=== PATIENT | female | born 1995 | race Caucasian/White ===

== ENCOUNTER 2016-08-19 00:51 | Emergency (ER) | payer MEDICAID ==
[~2016-08-19] VITALS: Ht 177.8 cm; Wt 124.7 kg
[~2016-08-19 00:51] MED LIST: BACI28.43 TP; CITA10TA8 PO; HYDR50CA PO; MIRT30TA PO; NYST15CR2 TP; OXCA300T3 PO; PNV#1COM7 PO; QUET400T4 PO
[2016-08-19 01:00] VITALS: BP 157/71
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
[2016-08-19] MEDS ORDERED: DIAZ5TAB PO (01:35)
[2016-08-19] MEDS ORDERED: NAPR500T PO (01:35)
[2016-08-19] MEDS: KETOROLAC 60 MG/2 ML VIAL. IM ONE (01:42)
[2016-08-19] MEDS ORDERED: HYDROmorphone PF 1 MG/ML DISP.SYRIN IV ONE (01:45)
[2016-08-19] MEDS ORDERED: HYDROmorphone PF 1 MG/ML DISP.SYRIN IM ONE (02:45)
[2016-08-19] MEDS ORDERED: HYDR-79 PO (23:37)
== END 2016-08-19 02:00 | disposition home or self-care (01) ==
LOC: ER 00:51
DX: M54.5 Low back pain (principal); G89.29 Other chronic pain; F17.200 Nicotine dependence, unspecified, uncomplicated; F20.9 Schizophrenia, unspecified; Z88.2 Allergy status to sulfonamides; Z88.6 Allergy status to analgesic agent; Z91.041 Radiographic dye allergy status; Y08.89XA Assault by other specified means, initial encounter; Y93.89 Activity, other specified; Y99.8 Other external cause status; Y92.89 Other specified places as the place of occurrence of the external cause
CPT/HCPCS: 96372; 99284; J1170; J1885

== ENCOUNTER 2016-08-19 23:03 | Emergency (ER) | payer MEDICAID ==
[~2016-08-19] VITALS: Ht 177.8 cm; Wt 124.7 kg
[~2016-08-19 23:03] MED LIST changes: +DIAZ5TAB PO; +NAPR500T PO
[2016-08-19] MEDS ORDERED: HYDROmorphone PF 1 MG/ML DISP.SYRIN IM ONE (23:30)
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
[2016-08-19] MEDS ORDERED: HYDR-79 PO (23:37)
[2016-08-20 02:18] VITALS: BP 124/60
== END 2016-08-19 23:45 | disposition home or self-care (01) ==
LOC: ER 23:05
DX: S86.811A Strain of other muscle(s) and tendon(s) at lower leg level, right leg, initial encounter (principal); G89.29 Other chronic pain; F17.200 Nicotine dependence, unspecified, uncomplicated; Z88.2 Allergy status to sulfonamides; Z88.6 Allergy status to analgesic agent; Z91.041 Radiographic dye allergy status; Y08.89XA Assault by other specified means, initial encounter; Y93.89 Activity, other specified; Y99.8 Other external cause status; Y92.89 Other specified places as the place of occurrence of the external cause
CPT/HCPCS: 96372; 99283; J1170

== ENCOUNTER 2016-08-30 23:23 | Emergency (ER) | payer MEDICAID, OTHER ==
[~2016-08-30] VITALS: Ht 177.8 cm; Wt 124.7 kg
[2016-08-30 23:23] VITALS: BP 124/60
[~2016-08-30 23:23] MED LIST changes: +HYDR-79 PO
[2016-08-31] MEDS ORDERED: ACETAMINOPHEN 325 MG TABLET PO ONE (00:15)
[2016-08-31 00:16] LABS: BILIRUBIN,URINE NEG (NEG); CLARITY,URINE HAZY; COLOR,URINE YELLOW
[2016-08-31 00:17] LABS: NITRITE,URINE NEG (NEG); UROBILINOGEN,URINE 1 mg/dL (0.2 mg/dL)
[2016-08-31 00:18] LABS: GLUCOSE,URINE NEG (NEG)
[2016-08-31 00:20] LABS: BACTERIA,URINE MOD /HPF (0-FEW); SQUAMOUS EPITHELIAL CELL,UR MOD /LPF
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
[2016-08-31] MEDS ORDERED: MORPHINE SULFATE 10 MG/ML SYRINGE. IM ONE (01:00)
[2016-08-31] MEDS ORDERED: PROMETHAZINE IM 25 MG/ML VIAL IM ONE (01:00)
[2016-08-31] MEDS ORDERED: ONDANSETRON ODT 4 MG TAB.RAPDIS PO ONE (01:00)
== END 2016-08-31 01:10 | disposition home or self-care (01) ==
LOC: ER 23:23
DX: G40.909 Epilepsy, unspecified, not intractable, without status epilepticus (principal); G43.909 Migraine, unspecified, not intractable, without status migrainosus; Z88.2 Allergy status to sulfonamides; Z88.6 Allergy status to analgesic agent; Z91.040 Latex allergy status
CPT/HCPCS: 81001; 81025; 84703; 87086; 99283

== ENCOUNTER 2016-09-02 00:36 | Emergency (ER) | payer OTHER ==
[~2016-09-02] VITALS: Ht 177.8 cm; Wt 124.7 kg
[2016-09-02] MEDS ORDERED: KETOROLAC 30 MG/ML VIAL. IV ONE (01:15)
[2016-09-02] MEDS ORDERED: IV NORMAL SALINE 1,000ML 1,000 ML IV ONE (01:15)
[2016-09-02] MEDS ORDERED: ONDANSETRON PF 4 MG/2 ML VIAL. IV ONE (01:15)
[2016-09-02 01:37] LABS: BASO # 0.1 x10^3/uL (0.0-0.2); BASO % 0 % (0-3); EOS # 0.7 x10^3/uL (0.0-0.7); EOS % 5 % (0-3); HEMOGLOBIN 13.6 g/dL (12.0-15.5); LYMPH # 2.8 x10^3/uL (1.0-4.8); LYMPH % 22 % (24-48); MEAN CORPUSCULAR HEMOGLOBIN 30 pg (25-35); MEAN CORPUSCULAR HGB CONC 34 g/dL (31-37); MEAN CORPUSCULAR VOLUME 88 fL (79-100); MONO # 0.6 x10^3/uL (0.0-1.1); MONO % 4 % (0-9); NEUT % 68 % (31-73); PLATELET COUNT 198 x10^3/uL (140-400); RED BLOOD COUNT 4.57 x10^6/uL (3.50-5.40); RED CELL DISTRIBUTION WIDTH 13.6 % (11.5-14.5); WHITE BLOOD COUNT 13.2 x10^3/uL (4.0-11.0)
[2016-09-02 01:44] LABS: ALBUMIN 3.5 g/dL (3.4-5.0); ALBUMIN/GLOBULIN RATIO 0.8 (1.0-1.7); CALCIUM 9.4 mg/dL (8.5-10.1); CREATININE 0.8 mg/dL (0.6-1.0); GFR 91.4; POTASSIUM 3.7 mmol/L (3.5-5.1); TOTAL BILIRUBIN 0.2 mg/dL (0.2-1.0)
[2016-09-02 02:04] VITALS: BP 117/72
--- NOTE | 2016-09-02 02:32 | RAD ---
PROCEDURE Limited abdomen ultrasound HISTORY Right upper quadrant abdominal pain TECHNIQUE Grayscale and color Doppler sonography utilized COMPARISON No prior FINDINGS Proximal IVC unremarkable. The pancreas and abdominal aorta could not be visualized due to extensive bowel gas shadowing. Mild increased liver echogenicity. No liver mass documented. Normal direction of blood flow of the portal vein. No gallstones, gallbladder wall thickening, pericholecystic fluid or sonographic Martinez sign. No biliary ductal dilation the common bile duct has a diameter 4.3 millimeters. Right renal length 10.7 centimeters no evidence of right renal mass or hydronephrosis. The right renal lower pole is poorly visualized due to shadowing. Spleen and left kidney were not evaluated. IMPRESSION Probable sonographic changes of fatty liver. Otherwise negative exam. Electronically signed by: Asa Bain MD (September 02, 2016 02:30:30)
[2016-09-02] MEDS ORDERED: fentaNYL PF 100 MCG/2 ML VIAL IV ONE (03:00)
[2016-09-02 03:03] LABS: BILIRUBIN,URINE NEG (NEG); CLARITY,URINE HAZY; COLOR,URINE YELLOW; GLUCOSE,URINE NEG (NEG)
[2016-09-02 03:04] LABS: BACTERIA,URINE FEW /HPF (0-FEW); NITRITE,URINE NEG (NEG); SQUAMOUS EPITHELIAL CELL,UR FEW /LPF; U PREG PATIENT NEGATIVE (NEG); UROBILINOGEN,URINE 0.2 mg/dL (0.2 mg/dL)
[2016-09-02] MEDS ORDERED: ONDA4TAB10 SL (03:19)
[2016-09-02] MEDS ORDERED: OXYC5CAP PO (03:19)
[2016-09-02] MEDS ORDERED: LEVO750T31 PO (03:19)
--- NOTE | 2016-09-02 03:19 | PHYS DOC ---
Past History Past Medical History: Bipolar, Depression, Diabetes, Migraines, Seizure, Schizophrenia Additional Past Medical Histor: chronic back pain Past Surgical History: No Surgical History Smoking: Less than 1pk/day Alcohol Use: None Drug Use: None Adult General Chief Complaint Chief Complaint: ABDOMINAL PAIN HPI HPI Patient is a 20 year old female who presents with abdominal pain. She reports onset of symptoms yesterday with sharp constant right upper quadrant pain, nausea, vomiting x 2, diarrhea. She reports subjective fever. She denies hematemesis, hematochezia/melena, dysuria/hematuria. She denies previous history of similar symptoms. She denies history of abdominal surgeries. She has diet controlled diabetes. She has a PCP. Review of Systems Review of Systems Constitutional: reports fever Eyes: Denies change in visual acuity HENT: Denies nasal congestion or sore throat Respiratory: Denies cough or shortness of breath Cardiovascular: Denies chest pain or edema GI: Reports abdominal pain, nausea, vomiting, diarrhea, denies bloody stools : Denies dysuria or hematuria Musculoskeletal: Denies back pain or joint pain Integument: Denies rash or skin lesions Neurologic: Denies headache, focal weakness or sensory changes Current Medications Current Medications Current Medications Medications (Trade) Dose Ordered Sig/Kirsten Start Time Stop Time Status Last Admin Dose Admin Fentanyl Citrate (Fentanyl 2ml Vial) 50 mcg 1X ONCE 09/02/16 03:00 09/02/16 03:01 DC Ketorolac Tromethamine (Toradol) 30 mg 1X ONCE 09/02/16 01:15 09/02/16 02:00 DC 09/02/16 01:15 30 MG Ondansetron HCl (Zofran) 4 mg 1X ONCE 09/02/16 01:15 09/02/16 02:00 DC 09/02/16 01:15 4 MG Sodium Chloride 1,000 ml @ 1,000 mls/hr 1X ONCE 09/02/16 01:15 09/02/16 02:14 DC 09/02/16 01:15 1,000 MLS/HR Allergies Allergies Allergies Coded Allergies Type Severity Reaction Last Updated Verified latex Allergy Severe BREATHING ISSUES 02/26/14 No Sulfa (Sulfonamide Antibiotics) Allergy Intermediate RASH 02/26/14 No acetaminophen Allergy Mild 06/12/15 Yes Physical Exam Physical Exam Constitutional: obese, no acute distress, non-toxic appearance. HENT: Normocephalic, atraumatic, bilateral external ears normal, oropharynx moist, nose normal. Eyes: conjunctiva normal, no discharge. Neck: supple, no stridor. Cardiovascular: RRR, no murmurs, no edema. Lungs & Thorax: LCTAB, no wheezing, no respiratory distress. Abdomen: normal bowel sounds, soft, right upper quadrant tenderness without rebound/guarding, no masses or pulsatile masses, nondistended. Skin: Warm, dry, no erythema, no rash. Back: right CVA tenderness is present. Extremities: No tenderness, no edema. Neurologic: Alert and oriented X 3, no focal deficits noted. Psychologic: Affect normal, judgement normal, mood normal. Current Patient Data Vital Signs Vital Signs Date Time Temp Pulse Resp B/P (MAP) Pulse Ox O2 Delivery O2 Flow Rate FiO2 09/02/16 00:36 98.2 100 20 99 Room Air Lab Results Laboratory Tests Test 09/02/16 01:18 White Blood Count 13.2 x10^3/uL (4.0-11.0) H Red Blood Count 4.57 x10^6/uL (3.50-5.40) Hemoglobin 13.6 g/dL (12.0-15.5) Hematocrit 40.0 % (36.0-47.0) Mean Corpuscular Volume 88 fL (79-100) Mean Corpuscular Hemoglobin 30 pg (25-35) Mean Corpuscular Hemoglobin Concent 34 g/dL (31-37) Red Cell Distribution Width 13.6 % (11.5-14.5) Platelet Count 198 x10^3/uL (140-400) Neutrophils (%) (Auto) 68 % (31-73) Lymphocytes (%) (Auto) 22 % (24-48) L Monocytes (%) (Auto) 4 % (0-9) Eosinophils (%) (Auto) 5 % (0-3) H Basophils (%) (Auto) 0 % (0-3) Neutrophils # (Auto) 9.0 x10^3uL (1.8-7.7) H Lymphocytes # (Auto) 2.8 x10^3/uL (1.0-4.8) Monocytes # (Auto) 0.6 x10^3/uL (0.0-1.1) Eosinophils # (Auto) 0.7 x10^3/uL (0.0-0.7) Basophils # (Auto) 0.1 x10^3/uL (0.0-0.2) Urine Collection Type Void Urine Color Yellow Urine Clarity Hazy Urine pH 5.5 Urine Specific [place] 1.020 Urine Protein Trace (NEG-TRACE) Urine Glucose (UA) Neg mg/dL (NEG) Urine Ketones (Stick) Neg mg/dL (NEG) Urine Blood Large (NEG) Urine Nitrite Neg (NEG) Urine Bilirubin Neg (NEG) Urine Urobilinogen Dipstick 0.2 mg/dL (0.2 mg/dL) Urine Leukocyte Esterase Small (NEG) Urine RBC 11-20 /HPF (0-2) Urine WBC 5-10 /HPF (0-4) Urine Squamous Epithelial Cells Few /LPF Urine Bacteria Few /HPF (0-FEW) Urine Mucus Slight /LPF Urine Test Negative (NEG) Sodium Level 141 mmol/L (136-145) Potassium Level 3.7 mmol/L (3.5-5.1) Chloride Level 105 mmol/L (98-107) Carbon Dioxide Level 26 mmol/L (21-32) Anion Gap 10 (6-14) Blood Urea Nitrogen 12 mg/dL (7-20) Creatinine 0.8 mg/dL (0.6-1.0) Estimated GFR (Cockcroft-Gault) 91.4 BUN/Creatinine Ratio 15 (6-20) Glucose Level 129 mg/dL (70-99) H Calcium Level 9.4 mg/dL (8.5-10.1) Total Bilirubin 0.2 mg/dL (0.2-1.0) Aspartate Amino Transferase (AST) 14 U/L (15-37) L Alanine Aminotransferase (ALT) 22 U/L (14-59) Alkaline Phosphatase 71 U/L (46-116) Total Protein 8.0 g/dL (6.4-8.2) Albumin 3.5 g/dL (3.4-5.0) Albumin/Globulin Ratio 0.8 (1.0-1.7) L Lipase 276 U/L (73-393) EKG EKG [] Radiology/Procedures Radiology/Procedures PROCEDURE: ABDOMEN LTD PROCEDURE Limited abdomen ultrasound HISTORY Right upper quadrant abdominal pain TECHNIQUE Grayscale and color Doppler sonography utilized COMPARISON No prior FINDINGS Proximal IVC unremarkable. The pancreas and abdominal aorta could not be visualized due to extensive bowel gas shadowing. Mild increased liver echogenicity. No liver mass documented. Normal direction of blood flow of the portal vein. No gallstones, gallbladder wall thickening, pericholecystic fluid or sonographic Martinez sign. No biliary ductal dilation the common bile duct has a diameter 4.3 millimeters. Right renal length 10.7 centimeters no evidence of right renal mass or hydronephrosis. The right renal lower pole is poorly visualized due to shadowing. Spleen and left kidney were not evaluated. IMPRESSION Probable sonographic changes of fatty liver. Otherwise negative exam. Electronically signed by: Asa Boyer MD (September 02, 2016 02:30:30) DICTATED AND SIGNED BY: ASA BOYER MD DATE: 09/02/16229[] Course & Med Decision Making Course & Med Decision Making Pertinent Labs and Imaging studies reviewed. (See chart for details) The patient presents with abdominal pain. Gave IV fluids, zofran, pain medication. Obtained labs & RUQ US. She has leukocytosis. There was a delay before the patient was able to give urine specimen. Ultimately it was obtained & showed infection consistent with pylenephritis, as well as blood. Discussed results with the patient; she has no history of kidney stones & pain today not colicky to suggest ureteral calculus. Suspect blood in urine more likely related to infection. Additionally the RUQ US demonstrated no hydronephrosis, though not specifically obtained to examine kidneys. Her pain was controlled & she tolerated oral intake. Heart rate improved from 100 to 92. Gave prescriptions for levaquin, norco, zofran, encouraged to use ibuprofen for mild pain & continue PO hydration with clear liquids. Follow up with PCP in 2-3 days. Come back for high fever, severe pain, uncontrolled vomiting, any otherwise worsening condition. Discharged home in stable & improved condition. [] Dragon Disclaimer Dragon Disclaimer This chart was dictated in whole or in part using Voice Recognition software in a busy, high-work load, and often noisy Emergency Department environment. It may contain unintended and wholly unrecognized errors or omissions. Departure Departure: Impression: Primary Impression: Pyelonephritis Additional Impressions: Nausea & vomiting Abdominal pain Disposition: 01 HOME, SELF-CARE Condition: STABLE Referrals: PCP,UNKNOWN (PCP) Patient Instructions: Pyelonephritis, Adult, [id number] Additional Instructions: You were seen in the emergency department for kidney infection. You had a normal ultrasound of your gallbladder. Please rest, drink fluids, take antibiotic, take ibuprofen for pain & norco for severe pain, use zofran for nausea. Follow up in 2-3 days with a primary care doctor. Come back for high fever, severe abdominal pain or flank pain, uncontrolled vomiting, any otherwise worsening condition. Scripts Ondansetron (ZOFRAN ODT) 4 Mg Tab.rapdis 1 TAB SL Q8HRS Y for NAUSEA, #10 TAB Prov: JENNIFER GARCIA MD 09/02/16 Oxycodone Hcl (OXYCODONE HCL) 5 Mg Capsule 5 MG PO Q6HRS Y for SEVERE PAIN, #10 CAP Prov: JENNIFER GARCIA MD 09/02/16 Levofloxacin (LEVAQUIN) 750 Mg Tablet 1 TAB PO DAILY, #5 TAB Prov: JENNIFER GARCIA MD 09/02/16 Problem Qualifiers JENNIFER GARCIA MD September 02, 2016 03:19
== END 2016-09-02 03:15 | disposition home or self-care (01) ==
LOC: ER 00:36
DX: N12 Tubulo-interstitial nephritis, not specified as acute or chronic (principal); G89.29 Other chronic pain; F20.9 Schizophrenia, unspecified; E11.9 Type 2 diabetes mellitus without complications; G43.909 Migraine, unspecified, not intractable, without status migrainosus; F17.200 Nicotine dependence, unspecified, uncomplicated; Z88.2 Allergy status to sulfonamides; Z88.6 Allergy status to analgesic agent; Z91.040 Latex allergy status
CPT/HCPCS: 36415; 76705; 80053; 81001; 81025; 83690; 85027; 87086; 96361; 96374; 96375; 99285; J1885; J2405; J3010; J7030

== ENCOUNTER 2016-09-09 22:35 | Emergency (ER) | payer OTHER ==
[~2016-09-09] VITALS: Ht 177.8 cm; Wt 124.7 kg
[~2016-09-09 22:35] MED LIST changes: +LEVO750T31 PO; +ONDA4TAB10 SL; +OXYC5CAP PO
[2016-09-09] MEDS ORDERED: 0.9 % SODIUM CHLORIDE 10 ML DISP.SYRIN. IV PRN (23:00)
--- NOTE | 2016-09-09 23:00 | PHYS DOC ---
Past History Past Medical History: Bipolar, Depression, Diabetes, Migraines, Seizure, Schizophrenia Additional Past Medical Histor: chronic back pain Past Surgical History: Tonsillectomy Smoking: Less than 1pk/day Alcohol Use: None Drug Use: None Adult General Chief Complaint Chief Complaint: abdominal pain [facility] HPI Patient is a pleasant 20-year-old female with history of bipolar disorder whose a who presents with lower abdominal pain described as crampy and achy over the suprapubic region for last week. The pain has been constant with breast tenderness and morning sickness for last 7 days. She has a positive test that she took at home and to -16 unclear if she is at this time. Patient's had a recent miscarriage 2 months ago and this feels very similar to her prior . Patient denies any nausea, vomiting, diarrhea, UTI symptoms, vaginal bleeding or discharge, fevers, chills, trauma, falls or back pain. She does smoke she presently vapes as well an attempt to reduce her amount of tobacco use. Patient was seen here several weeks ago diagnosed with a pyelonephritis given her UTI symptoms and completed a course of Levaquin. Review of Systems Review of Systems Constitutional: Denies fever or chills [] Eyes: Denies change in visual acuity, redness, or eye pain [] HENT: Denies nasal congestion or sore throat [] Respiratory: Denies cough or shortness of breath [] Cardiovascular: No additional information not addressed in HPI [] GI: Planes of lower abdominal pain with nausea without vomiting diarrhea or bloody stools. : Denies dysuria or hematuria [] Musculoskeletal: Denies back pain or joint pain [] Integument: Denies rash or skin lesions [] Neurologic: Denies headache, focal weakness or sensory changes [] Endocrine: Denies polyuria or polydipsia [] Allergies Allergies Allergies Coded Allergies Type Severity Reaction Last Updated Verified latex Allergy Severe BREATHING ISSUES 02/26/14 No Sulfa (Sulfonamide Antibiotics) Allergy Intermediate RASH 02/26/14 No acetaminophen Allergy Mild 06/12/15 Yes Physical Exam Physical Exam Constitutional: Well developed, well nourished, obese female in no acute distress is mildly disheveled and dirty HENT: Normocephalic, atraumatic, bilateral external ears normal, oropharynx moist, Eyes: PERRLA, EOMI, conjunctiva normal, no discharge. [] Neck: Normal range of motion, no tenderness, supple, no stridor. [] Cardiovascular:Heart rate regular rhythm, no murmur [] Lungs & Thorax: Bilateral breath sounds clear to auscultation [] Abdomen: The nurse in the suprapubic region without guarding rebound or organomegaly. No Martinez's or McBurney's point tenderness to palpation Skin: Warm, dry, no erythema, no rash. [] Back: No tenderness, no CVA tenderness. [] Extremities: No tenderness, no cyanosis, no clubbing, ROM intact, no edema. [] Neurologic: Alert and oriented X 3, normal motor function, normal sensory function, no focal deficits noted. [] Psychologic: Affect normal, judgement normal, mood normal. [] Current Patient Data Vital Signs Laboratory Tests Test 09/09/16 23:20 09/09/16 23:35 09/09/16 23:42 White Blood Count 12.9 x10^3/uL (4.0-11.0) H Red Blood Count 4.69 x10^6/uL (3.50-5.40) Hemoglobin 13.9 g/dL (12.0-15.5) Hematocrit 40.9 % (36.0-47.0) Mean Corpuscular Volume 87 fL (79-100) Mean Corpuscular Hemoglobin 30 pg (25-35) Mean Corpuscular Hemoglobin Concent 34 g/dL (31-37) Red Cell Distribution Width 13.7 % (11.5-14.5) Platelet Count 237 x10^3/uL (140-400) Neutrophils (%) (Auto) 61 % (31-73) Lymphocytes (%) (Auto) 25 % (24-48) Monocytes (%) (Auto) 6 % (0-9) Eosinophils (%) (Auto) 7 % (0-3) H Basophils (%) (Auto) 1 % (0-3) Neutrophils # (Auto) 7.9 x10^3uL (1.8-7.7) H Lymphocytes # (Auto) 3.2 x10^3/uL (1.0-4.8) Monocytes # (Auto) 0.8 x10^3/uL (0.0-1.1) Eosinophils # (Auto) 0.9 x10^3/uL (0.0-0.7) H Basophils # (Auto) 0.2 x10^3/uL (0.0-0.2) Maternal Serum HCG Beta Subunit < 1 mIU/mL (0-6) Sodium Level 140 mmol/L (136-145) Potassium Level 3.5 mmol/L (3.5-5.1) Chloride Level 103 mmol/L (98-107) Carbon Dioxide Level 27 mmol/L (21-32) Anion Gap 10 (6-14) Blood Urea Nitrogen 10 mg/dL (7-20) Creatinine 0.9 mg/dL (0.6-1.0) Estimated GFR (Cockcroft-Gault) 79.8 Glucose Level 92 mg/dL (70-99) Calcium Level 9.2 mg/dL (8.5-10.1) Total Bilirubin 0.3 mg/dL (0.2-1.0) Direct Bilirubin 0.1 mg/dL (0.0-0.2) Aspartate Amino Transferase (AST) 17 U/L (15-37) Alanine Aminotransferase (ALT) 41 U/L (14-59) Alkaline Phosphatase 71 U/L (46-116) Total Protein 8.3 g/dL (6.4-8.2) H Albumin 3.7 g/dL (3.4-5.0) Urine Collection Type Unknown Urine Color Yellow Urine Clarity Clear Urine pH 5.5 Urine Specific [place] 1.025 Urine Protein Trace (NEG-TRACE) Urine Glucose (UA) Neg mg/dL (NEG) Urine Ketones (Stick) Neg mg/dL (NEG) Urine Blood Neg (NEG) Urine Nitrite Neg (NEG) Urine Bilirubin Neg (NEG) Urine Urobilinogen Dipstick 1 mg/dL (0.2 mg/dL) Urine Leukocyte Esterase Neg (NEG) Urine RBC Occ /HPF (0-2) Urine WBC 1-4 /HPF (0-4) Urine Squamous Epithelial Cells Few /LPF Urine Bacteria Few /HPF (0-FEW) POC Urine HCG, Qualitative hcg negative (Negative) Nursery Laboratory Tests 09/09/16 23:20: White Blood Count 12.9, Red Blood Count 4.69, Hemoglobin 13.9, Hematocrit 40.9, Mean Corpuscular Volume 87, Mean Corpuscular Hemoglobin 30, Mean Corpuscular Hemoglobin Concent 34, Red Cell Distribution Width 13.7, Platelet Count 237, Neutrophils (%) (Auto) 61, Lymphocytes (%) (Auto) 25, Monocytes (%) (Auto) 6, Eosinophils (%) (Auto) 7, Basophils (%) (Auto) 1, Neutrophils # (Auto) 7.9, Lymphocytes # (Auto) 3.2, Monocytes # (Auto) 0.8, Eosinophils # (Auto) 0.9, Basophils # (Auto) 0.2, Maternal Serum HCG Beta Subunit < 1, Sodium Level 140, Potassium Level 3.5, Chloride Level 103, Carbon Dioxide Level 27, Anion Gap 10, Blood Urea Nitrogen 10, Creatinine 0.9, Estimated GFR (Cockcroft-Gault) 79.8, Glucose Level 92, Calcium Level 9.2, Total Bilirubin 0.3, Direct Bilirubin 0.1, Aspartate Amino Transf (AST/SGOT) 17, Alanine Aminotransferase (ALT/SGPT) 41, Alkaline Phosphatase 71, Total Protein 8.3, Albumin 3.7 09/09/16 23:35: Urine Collection Type Unknown, Urine Color Yellow, Urine Clarity Clear, Urine pH 5.5, Urine Specific [place] 1.025, Urine Protein Trace, Urine Glucose (UA) Neg, Urine Ketones (Stick) Neg, Urine Blood Neg, Urine Nitrite Neg, Urine Bilirubin Neg, Urine Urobilinogen Dipstick 1, Urine Leukocyte Esterase Neg, Urine RBC Occ, Urine WBC 1-4, Urine Squamous Epithelial Cells Few, Urine Bacteria Few 09/09/16 23:42: Bedside Urine HCG, Qualitative hcg negative EKG EKG [] Radiology/Procedures Radiology/Procedures [] Course & Med Decision Making Course & Med Decision Making Pertinent Labs and Imaging studies reviewed. (See chart for details) I reviewed patient's detention records prior records from prior visits on 02 Sep 2016 evaluated patient's prior laboratory work as well as laboratory work from today a she is resting, watching TV with her fianc without complaint. Her urine test and her beta hCG Quant are both with a negative limits for signs of early . Patient has had no crampy abdominal pain while here she does have some bacteria and slight with blood cells in her urine given her prior history of recurrent UTIs in her sexual activity or provide her an antibiotic dose as well as Pyridium to help with pain with dysuria if she needs it. Asked to follow-up with her [employer] for continued management of her symptoms [] Aime Disclaimer Dragon Disclaimer This chart was dictated in whole or in part using Voice Recognition software in a busy, high-work load, and often noisy Emergency Department environment. It may contain unintended and wholly unrecognized errors or omissions. Departure Departure: Impression: Primary Impression: Abdominal pain Additional Impression: Bacteria in urine Disposition: HOME, SELF-CARE Condition: IMPROVED Referrals: PCP,UNKNOWN (PCP) Patient Instructions: Abdominal Pain, Urinary Tract Infection Additional Instructions: Please follow-up with your primary care physician in the next 24-48 hours if symptoms continue please use Tylenol for her pain return if you have any questions or concerns. I would advise a complete course of antibiotics. Presumptive diagnosis of urinary tract infection and return if her still having symptoms to your primary care doctor and have referral to urogynecology if her symptoms become more frequent. Scripts Nitrofurantoin Monohyd/M-Cryst (MACROBID 100 MG CAPSULE) 100 Mg Capsule 1 CAP PO BID, #20 CAP Prov: RAYNA COLLINS MD 09/10/16 Phenazopyridine Hcl (PYRIDIUM) 200 Mg Tablet 200 MG PO TID for 5 Days, #15 TAB Prov: RAYNA COLLINS MD 09/10/16 Problem Qualifiers RAYNA COLLINS MD September 09, 2016 23:00
[2016-09-09] MEDS ORDERED: IV NORMAL SALINE 1,000ML 1,000 ML IV SCH (23:30)
[2016-09-09] MEDS ORDERED: ONDANSETRON PF 4 MG/2 ML VIAL. IV ONE (23:30)
[2016-09-09] MEDS ORDERED: fentaNYL PF 100 MCG/2 ML VIAL IV ONE (23:30)
[2016-09-09 23:34] LABS: BASO # 0.2 x10^3/uL (0.0-0.2); BASO % 1 % (0-3); EOS # 0.9 x10^3/uL (0.0-0.7); EOS % 7 % (0-3); HEMATOCRIT 40.9 % (36.0-47.0); HEMOGLOBIN 13.9 g/dL (12.0-15.5); LYMPH # 3.2 x10^3/uL (1.0-4.8); LYMPH % 25 % (24-48); MEAN CORPUSCULAR HEMOGLOBIN 30 pg (25-35); MEAN CORPUSCULAR HGB CONC 34 g/dL (31-37); MEAN CORPUSCULAR VOLUME 87 fL (79-100); MONO # 0.8 x10^3/uL (0.0-1.1); MONO % 6 % (0-9); NEUT # 7.9 x10^3uL (1.8-7.7); NEUT % 61 % (31-73); PLATELET COUNT 237 x10^3/uL (140-400); RED BLOOD COUNT 4.69 x10^6/uL (3.50-5.40); RED CELL DISTRIBUTION WIDTH 13.7 % (11.5-14.5); WHITE BLOOD COUNT 12.9 x10^3/uL (4.0-11.0)
[2016-09-09 23:46] LABS: ALBUMIN 3.7 g/dL (3.4-5.0); CALCIUM 9.2 mg/dL (8.5-10.1); CREATININE 0.9 mg/dL (0.6-1.0); DIRECT BILIRUBIN 0.1 mg/dL (0.0-0.2); GFR 79.8; POTASSIUM 3.5 mmol/L (3.5-5.1); TOTAL BILIRUBIN 0.3 mg/dL (0.2-1.0); TOTAL PROTEIN 8.3 g/dL (6.4-8.2)
[2016-09-10 00:08] LABS: BACTERIA,URINE FEW /HPF (0-FEW); BILIRUBIN,URINE NEG (NEG); CLARITY,URINE CLEAR; COLOR,URINE YELLOW; GLUCOSE,URINE NEG (NEG); NITRITE,URINE NEG (NEG); RBC,URINE OCC /HPF (0-2); SQUAMOUS EPITHELIAL CELL,UR FEW /LPF; UROBILINOGEN,URINE 1 mg/dL (0.2 mg/dL)
[2016-09-10] MEDS ORDERED: NITR100C62 PO (00:20)
[2016-09-10] MEDS ORDERED: PHEN-318 PO (00:20)
[2016-09-10 00:33] VITALS: BP 108/61
[2016-09-10] MEDS ORDERED: HYDROmorphone PF 1 MG/ML DISP.SYRIN IV ONE (01:00)
== END 2016-09-10 01:00 | disposition home or self-care (01) ==
LOC: ER 22:35
DX: R10.30 Lower abdominal pain, unspecified (principal); R82.71 Bacteriuria; E11.9 Type 2 diabetes mellitus without complications; G43.909 Migraine, unspecified, not intractable, without status migrainosus; F31.9 Bipolar disorder, unspecified; F20.9 Schizophrenia, unspecified; G89.29 Other chronic pain; F17.200 Nicotine dependence, unspecified, uncomplicated; Z88.2 Allergy status to sulfonamides; Z88.6 Allergy status to analgesic agent; Z91.040 Latex allergy status
CPT/HCPCS: 36415; 80048; 80076; 81001; 81025; 84702; 85027; 96361; 96374; 96375; 99284; J1170; J2405; J3010; J7030

== ENCOUNTER 2016-10-09 20:12 | Emergency (ER) | payer OTHER ==
[~2016-10-09] VITALS: Ht 175.3 cm; Wt 121.6 kg
[~2016-10-09 20:12] MED LIST changes: +NITR100C62 PO; +PHEN-318 PO
[2016-10-09 20:20] VITALS: BP 140/93
--- NOTE | 2016-10-09 20:55 | PHYS DOC ---
Past History Past Medical History: Diabetes Additional Past Medical Histor: chronic back pain Past Surgical History: No Surgical History Smoking: Less than 1pk/day Alcohol Use: None Drug Use: None Adult General Chief Complaint Chief Complaint: VAGINAL BLEEDING HPI HPI 20-year-old female with a history of menorrhagia now presents to the emergency department because she's not sure if she is . Patient states she did multiple home tests. Some said she was not but some results were unclear so she came to the emergency department. He is having some vaginal bleeding but not passing any tissue. No abnormal discharge or odor. Patient reports it is time for her menses. No abdominal or pelvic pain. Patient is otherwise asymptomatic Review of Systems Review of Systems Constitutional: Denies fever or chills [] Eyes: Denies change in visual acuity, redness, or eye pain [] HENT: Denies nasal congestion or sore throat [] Respiratory: Denies cough or shortness of breath [] Cardiovascular: No additional information not addressed in HPI [] GI: Denies abdominal pain, nausea, vomiting, bloody stools or diarrhea [] : Denies dysuria or hematuria [] Musculoskeletal: Denies back pain or joint pain [] Integument: Denies rash or skin lesions [] Neurologic: Denies headache, focal weakness or sensory changes [] Endocrine: Denies polyuria or polydipsia [] Allergies Allergies Allergies Coded Allergies Type Severity Reaction Last Updated Verified latex Allergy Severe BREATHING ISSUES 10/09/16 No Sulfa (Sulfonamide Antibiotics) Allergy Intermediate RASH 10/09/16 No acetaminophen Allergy Mild 10/09/16 Yes Physical Exam Physical Exam Constitutional: Well developed, well nourished, no acute distress, non-toxic appearance. [] HENT: Normocephalic, atraumatic, bilateral external ears normal, oropharynx moist, no oral exudates, nose normal. [] Eyes: PERRLA, EOMI, conjunctiva normal, no discharge. [] Neck: Normal range of motion, no tenderness, supple, no stridor. [] Cardiovascular:Heart rate regular rhythm, no murmur [] Lungs & Thorax: Bilateral breath sounds clear to auscultation [] Abdomen: Bowel sounds normal, soft, no tenderness, no masses, no pulsatile masses. [] Skin: Warm, dry, no erythema, no rash. [] Back: No tenderness, no CVA tenderness. [] Extremities: No tenderness, no cyanosis, no clubbing, ROM intact, no edema. [] Neurologic: Alert and oriented X 3, normal motor function, normal sensory function, no focal deficits noted. [] Psychologic: Affect normal, judgement normal, mood normal. [] Current Patient Data Vital Signs Vital Signs Date Time Temp Pulse Resp B/P (MAP) Pulse Ox O2 Delivery O2 Flow Rate FiO2 10/09/16 20:20 98.4 90 17 99 Room Air Lab Results Laboratory Tests Test 10/09/16 20:45 POC Urine HCG, Qualitative hcg negative (Negative) EKG EKG [] Radiology/Procedures Radiology/Procedures [] Course & Med Decision Making Course & Med Decision Making Pertinent Labs and Imaging studies reviewed. (See chart for details) Signs and symptoms consistent with menorrhagia. Patient is not . As history is consistent with menstrual cycle and no abnormal discharge or pelvic pain no further workup or treatment is indicated at this time. She is well- appearing with unremarkable vital signs and a benign exam Patient agrees with outpatient follow-up and strict return precautions given [] Dragon Disclaimer Dragon Disclaimer This chart was dictated in whole or in part using Voice Recognition software in a busy, high-work load, and often noisy Emergency Department environment. It may contain unintended and wholly unrecognized errors or omissions. Departure Departure: Impression: Primary Impression: Menorrhagia Disposition: 01 HOME, SELF-CARE Condition: GOOD Referrals: BRAYDON VACA MD (PCP) Patient Instructions: Menorrhagia, [id number] Additional Instructions: You're having a heavy period. Since called menorrhagia. You are not today. Rest and drink plenty of fluids. Follow-up with your doctor and your OB/ CABIN SUPERVISOR doctor tomorrow. Take Motrin every 6 hours and Tylenol every 4 hours as needed for pain return for new or severe symptoms. Symptoms STACY NJ MD Oct 09, 2016 20:54
[2016-10-09] MEDS ORDERED: IBUPROFEN 400 MG TABLET. PO ONE (21:15)
== END 2016-10-09 21:15 | disposition home or self-care (01) ==
LOC: ER 20:12
DX: N92.0 Excessive and frequent menstruation with regular cycle (principal); G89.29 Other chronic pain; E11.9 Type 2 diabetes mellitus without complications; F17.200 Nicotine dependence, unspecified, uncomplicated; Z88.2 Allergy status to sulfonamides; Z88.6 Allergy status to analgesic agent; Z91.040 Latex allergy status
CPT/HCPCS: 81025; 99282

== ENCOUNTER 2017-05-22 14:39 | Emergency (ER) | payer OTHER ==
[~2017-05-22] VITALS: Ht 170.2 cm; Wt 115.2 kg
[~2017-05-22 14:39] MED LIST changes: +NAPR-683 PO; -NAPR500T PO
[2017-05-22 14:45] VITALS: BP 123/56
--- NOTE | 2017-05-22 15:15 | RAD ---
Left foot, 3 views, 05/22/2017: History: Stepped on nail No fracture or dislocation is identified. No radiopaque foreign body is evident in the soft tissues. IMPRESSION: No acute bony abnormality is detected.
[2017-05-22] MEDS ORDERED: LEVO750T31 PO (15:18)
[2017-05-22] MEDS ORDERED: NAPR-683 PO (15:18)
--- NOTE | 2017-05-22 15:18 | PHYS DOC ---
Past History Past Medical History: Diabetes Additional Past Medical Histor: chronic back pain Past Surgical History: No Surgical History Smoking: Less than 1pk/day Alcohol Use: None Drug Use: None Adult General Chief Complaint Chief Complaint: FOOT INJURY PAIN HPI HPI Patient is a 21 year old female who presents with complaint of a puncture wound to the left foot. Patient states that this took place approximately 1 hour prior to arrival. Patient states that she stepped accidentally onto a nail which pierced through the sole of her shoe into her left forefoot. The nail was removed from her foot at the scene. Patient states that she is having throbbing pain to the foot as result of stepping on the nail. Patient denies any other injuries. Patient states that she received a tetanus booster 2 years ago. Patient rates the pain in her left foot is 10 out of 10 currently. Review of Systems Review of Systems Constitutional: Denies fever or chills [] Eyes: Denies change in visual acuity, redness, or eye pain [] HENT: Denies nasal congestion or sore throat [] Musculoskeletal: Left foot pain[] Integument: Denies rash or skin lesions [] Neurologic: Denies headache, focal weakness or sensory changes [] All other systems were reviewed and found to be within normal limits, except as documented in this note. Allergies Allergies Allergies Coded Allergies Type Severity Reaction Last Updated Verified latex Allergy Severe BREATHING ISSUES 10/09/16 No Sulfa (Sulfonamide Antibiotics) Allergy Intermediate RASH 10/09/16 No acetaminophen Allergy Mild 10/09/16 Yes Physical Exam Physical Exam Constitutional: Alert, obese, afebrile, appears in mild to moderate discomfort. [] HENT: Normocephalic, atraumatic, bilateral external ears normal, oropharynx moist, no oral exudates, nose normal. [] Eyes: PERRLA, EOMI, conjunctiva normal, no discharge. [] Neck: Normal range of motion, no tenderness, supple, no stridor. [] Cardiovascular:Heart rate regular rhythm, no murmur [] Lungs & Thorax: Bilateral breath sounds clear to auscultation [] Abdomen: Bowel sounds normal, soft, no tenderness, no masses, no pulsatile masses. [] Skin: Warm, dry, no erythema, no rash. [] Back: No tenderness, no CVA tenderness. [] Extremities: 3 mm puncture wound to the volar lateral aspect of the left forefoot with no active bleeding, tenderness to palpation at site of puncture wound, full range of motion present. [] Neurologic: Alert and oriented X 3, normal motor function, normal sensory function, no focal deficits noted. [] Current Patient Data Vital Signs Vital Signs Date Time Temp Pulse Resp B/P (MAP) Pulse Ox O2 Delivery O2 Flow Rate FiO2 05/22/17 14:45 90 20 123/56 (78) 96 Room Air 05/22/17 14:39 98.1 Lab Results Not performed EKG EKG Not performed[] Radiology/Procedures Radiology/Procedures [address] [address] IMAGING REPORT Signed PATIENT: MAYLIN HICKS ACCOUNT: [id number] : 1995 LOCATION: ER AGE: 21 SEX: F EXAM STATUS: REG ER ORD. PHYSICIAN: LYNDSEY THIBODEAUX MD REASON: puncture wound through forefoot PROCEDURE: FOOT LEFT 3V Left foot, 3 views, 05/22/2017: History: Stepped on nail No fracture or dislocation is identified. No radiopaque foreign body is evident in the soft tissues. IMPRESSION: No acute bony abnormality is detected. DICTATED AND SIGNED BY: FRANCISCO HAIDER MD DATE: 05/22/17 1512 CC: LYNDSEY THIBODEAUX MD; BRAYDON VACA MD ~ [] Course & Med Decision Making Course & Med Decision Making Pertinent Labs and Imaging studies reviewed. (See chart for details) The patient's puncture wound was cleaned in the emergency department. X-rays were negative for retained foreign body. Due to the nature of the puncture wound , the patient is a high risk for pseudomonas and strep infection. I consulted Dr. Abbasi of infectious disease. He recommended that the patient be started on a seven-day course of Levaquin 750 mg. Patient was given first dose of Levaquin in the emergency department. Patient will also be treated with Naprosyn for pain and inflammation. Patient provided with crutches to assist with ambulation. Advised patient follow-up in the next 3 days for reevaluation and to return emergency department for any worsening symptoms. Patient voiced understanding and in agreement with treatment plan. Dragon Disclaimer Dragon Disclaimer This electronic medical record was generated, in whole or in part, using a voice recognition dictation system. Departure Departure: Impression: Primary Impression: Puncture wound of left foot Disposition: HOME, SELF-CARE Condition: IMPROVED Referrals: BRAYDON AVCA MD (PCP) Patient Instructions: Puncture Wound Additional Instructions: Follow-up in 2-3 days with your primary doctor for reevaluation. Return to the emergency department for any worsening symptoms. Scripts Naproxen (NAPROSYN) 500 Mg Tablet 1 TAB PO BID, #20 TAB 0 Refills Prov: LYNDSEY THIBODEAUX MD 05/22/17 Levofloxacin (LEVAQUIN) 750 Mg Tablet 1 TAB PO DAILY, #7 TAB Prov: LYNDSEY THIBODEAUX MD 05/22/17 Problem Qualifiers Primary Impression: Puncture wound of left foot Encounter type: initial encounter Qualified Codes: S91.332A - Puncture wound without foreign body, left foot, initial encounter LYNDSEY THIBODEAUX MD May 22, 2017 15:18
[2017-05-22] MEDS ORDERED: levoFLOXacin 500 MG TABLET PO ONE (15:45)
[2017-05-22] MEDS ORDERED: NAPROXEN 500 MG TABLET PO ONE (15:45)
== END 2017-05-22 15:40 | disposition home or self-care (01) ==
LOC: ER 14:39
DX: S91.332A Puncture wound without foreign body, left foot, initial encounter (principal); G89.29 Other chronic pain; E11.9 Type 2 diabetes mellitus without complications; Z88.2 Allergy status to sulfonamides; Z88.6 Allergy status to analgesic agent; Z91.040 Latex allergy status; F17.200 Nicotine dependence, unspecified, uncomplicated; W45.0XXA Nail entering through skin, initial encounter; Y93.89 Activity, other specified; Y99.8 Other external cause status; Y92.89 Other specified places as the place of occurrence of the external cause
CPT/HCPCS: 73630; 99284

== ENCOUNTER 2017-07-29 21:40 | Emergency (ER) | payer OTHER ==
[~2017-07-29] VITALS: Ht 170.2 cm; Wt 125.4 kg
--- NOTE | 2017-07-29 22:17 | EKG ---
[address] [address] Test Date: 2017-07-29 Test Time: 22:13:50 Pat Name: MAYLIN HICKS Department: Room: Gender: F Vehicle Check In Clerk: : 1995 Requested By: STACY [place] Order Number: [id number] Reading MD: Familia Bernard MD Measurements Intervals [place] Rate: 81 P: 35 DC: 150 QRS: 17 QRSD: 102 T: 41 QT: 386 QTc: 449 Interpretive Statements SINUS RHYTHM PAC Electronically Signed On 08-05-2017 12:14:14 CDT by Familia Bernard MD
[2017-07-29 22:24] LABS: AMPHETAMINE/METHAMPHETAMINE NEG (NEG); BARBITURATES NEG (NEG); BENZODIAZEPINES NEG (NEG); CANNABINOIDS POS (NEG); COCAINE NEG (NEG); METHADONE NEG (NEG); OPIATES NEG (NEG); PHENCYCLIDINE NEG (NEG)
[2017-07-29 22:35] LABS: BASO # 0.1 x10^3/uL (0.0-0.2); BASO % 1 % (0-3); EOS # 1.5 x10^3/uL (0.0-0.7); EOS % 13 % (0-3); HEMATOCRIT 40.8 % (36.0-47.0); HEMOGLOBIN 13.6 g/dL (12.0-15.5); LYMPH % 26 % (24-48); MEAN CORPUSCULAR HEMOGLOBIN 30 pg (25-35); MEAN CORPUSCULAR HGB CONC 34 g/dL (31-37); MEAN CORPUSCULAR VOLUME 89 fL (79-100); MONO # 0.8 x10^3/uL (0.0-1.1); MONO % 6 % (0-9); NEUT # 6.5 x10^3uL (1.8-7.7); NEUT % 55 % (31-73); PLATELET COUNT 223 x10^3/uL (140-400); RED BLOOD COUNT 4.58 x10^6/uL (3.50-5.40); RED CELL DISTRIBUTION WIDTH 14.7 % (11.5-14.5); WHITE BLOOD COUNT 11.8 x10^3/uL (4.0-11.0)
[2017-07-29 22:36] LABS: CALCIUM 9.5 mg/dL (8.5-10.1); CREATININE 0.8 mg/dL (0.6-1.0); GFR 90.5
--- NOTE | 2017-07-29 22:48 | RAD ---
RS Compliance Statement: One or more of the following individualized dose reduction techniques were utilized for this examination: 1. Automated exposure control 2. Adjustment of the mA and/or kV according to patient size 3. Use of iterative reconstruction technique CT HEAD WITHOUT CONTRAST History: [id number] Seizure activity today, severe headache, patient states she feels a bump on her upper forehead with severe pain, nausea. Comparison: None. Procedure: Axial images are obtained of the head from the skull base through the vertex without IV contrast. Findings: The ventricles and sulci are normal for the patient's age. No mass-effect, midline shift, hemorrhage, extra-axial fluid collection, or obvious acute infarction is identified. Basilar cisterns are patent. Bone windows demonstrate no acute calvarial abnormality. Maxillary sinuses mostly not imaged. Mucosal thickening in the upper left maxillary sinus. The other visualized paranasal sinuses are clear. Mastoid air cells are well aerated. IMPRESSION: No acute intracranial abnormality. Electronically signed by: Pineda Fairchild MD (07/29/2017 10:44 PM) [facility]
[2017-07-29] MEDS: IV NORMAL SALINE 1,000ML 1,000 ML IV SCH (22:49)
[2017-07-29] MEDS ORDERED: ONDANSETRON PF 4 MG/2 ML VIAL. ONE (22:50)
[2017-07-29] MEDS ORDERED: ONDANSETRON PF 4 MG/2 ML VIAL. IV ONE (23:00)
[2017-07-30] MEDS ORDERED: KETOROLAC 30 MG/ML VIAL. IV ONE (00:30)
[2017-07-30] MEDS ORDERED: ONDANSETRON PF 4 MG/2 ML VIAL. IV ONE (00:30)
--- NOTE | 2017-07-30 00:48 | PHYS DOC ---
Past History Past Medical History: Asthma, Diabetes, Seizure Additional Past Medical Histor: chronic back pain Past Surgical History: No Surgical History Smoking: Less than 1pk/day Alcohol Use: None Drug Use: Marijuana Adult General Chief Complaint Chief Complaint: SEIZURE HPI HPI 21-year-old female with a history of seizure-like activity for which she takes Valium however she has never had an EEG. She now presents to the emergency department after having some seizure-like activity today. Her significant other says that she was not unconscious during this episode. No incontinence patient denies neurologic complaints. She has never seen a neurologist and has just been under the care of her primary care physician Review of Systems Review of Systems Constitutional: Denies fever or chills [] Eyes: Denies change in visual acuity, redness, or eye pain [] HENT: Denies nasal congestion or sore throat [] Respiratory: Denies cough or shortness of breath [] Cardiovascular: No additional information not addressed in HPI [] GI: Denies abdominal pain, nausea, vomiting, bloody stools or diarrhea [] : Denies dysuria or hematuria [] Musculoskeletal: Denies back pain or joint pain [] Integument: Denies rash or skin lesions [] Neurologic: Denies headache, focal weakness or sensory changes [] Endocrine: Denies polyuria or polydipsia [] All other systems were reviewed and found to be within normal limits, except as documented in this note. Current Medications Current Medications Current Medications Medications (Trade) Dose Ordered Sig/Kirsten Start Time Stop Time Status Last Admin Dose Admin Ketorolac Tromethamine (Toradol) 30 mg 1X ONCE 07/30/17 00:30 07/30/17 00:31 DC 07/30/17 00:21 30 MG Ondansetron HCl (Zofran) 4 mg 1X ONCE 07/30/17 00:30 07/30/17 00:31 DC 07/30/17 00:21 4 MG Sodium Chloride 1,000 ml @ 1,000 mls/hr Q1H 07/29/17 22:08 07/29/17 22:49 1,000 MLS/HR Allergies Allergies Allergies Coded Allergies Type Severity Reaction Last Updated Verified latex Allergy Severe BREATHING ISSUES 10/09/16 No Sulfa (Sulfonamide Antibiotics) Allergy Intermediate RASH 10/09/16 No acetaminophen Allergy Mild 10/09/16 Yes Physical Exam Physical Exam Well-appearing 21-year-old female morbidly obese no acute distress. Mucous members moist supple neck clear lungs regular rate and rhythm no tachycardia benign abdomen and normal extremities with a nonfocal neurologic exam including cranial nerves Constitutional: Well developed, well nourished, no acute distress, non-toxic appearance. [] HENT: Normocephalic, atraumatic, bilateral external ears normal, oropharynx moist, no oral exudates, nose normal. [] Eyes: PERRLA, EOMI, conjunctiva normal, no discharge. [] Neck: Normal range of motion, no tenderness, supple, no stridor. [] Cardiovascular:Heart rate regular rhythm, no murmur [] Lungs & Thorax: Bilateral breath sounds clear to auscultation [] Abdomen: Bowel sounds normal, soft, no tenderness, no masses, no pulsatile masses. [] Skin: Warm, dry, no erythema, no rash. [] Back: No tenderness, no CVA tenderness. [] Extremities: No tenderness, no cyanosis, no clubbing, ROM intact, no edema. [] Neurologic: Alert and oriented X 3, normal motor function, normal sensory function, no focal deficits noted. [] Psychologic: Affect normal, judgement normal, mood normal. [] Current Patient Data Vital Signs Vital Signs Date Time Temp Pulse Resp B/P (MAP) Pulse Ox O2 Delivery O2 Flow Rate FiO2 07/29/17 21:40 98.4 74 16 99 Room Air Lab Results Laboratory Tests Test 07/29/17 21:11 07/29/17 21:55 07/29/17 22:13 POC Urine HCG, Qualitative hcg negative (Negative) Urine Opiates Screen Neg (NEG) Urine Methadone Screen Neg (NEG) Urine Barbiturates Neg (NEG) Urine Phencyclidine Screen Neg (NEG) Urine Amphetamine/Methamphetamine Neg (NEG) Urine Benzodiazepines Screen Neg (NEG) Urine Cocaine Screen Neg (NEG) Urine Cannabinoids Screen Pos (NEG) Urine Ethyl Alcohol Neg (NEG) White Blood Count 11.8 x10^3/uL (4.0-11.0) H Red Blood Count 4.58 x10^6/uL (3.50-5.40) Hemoglobin 13.6 g/dL (12.0-15.5) Hematocrit 40.8 % (36.0-47.0) Mean Corpuscular Volume 89 fL (79-100) Mean Corpuscular Hemoglobin 30 pg (25-35) Mean Corpuscular Hemoglobin Concent 34 g/dL (31-37) Red Cell Distribution Width 14.7 % (11.5-14.5) H Platelet Count 223 x10^3/uL (140-400) Neutrophils (%) (Auto) 55 % (31-73) Lymphocytes (%) (Auto) 26 % (24-48) Monocytes (%) (Auto) 6 % (0-9) Eosinophils (%) (Auto) 13 % (0-3) H Basophils (%) (Auto) 1 % (0-3) Neutrophils # (Auto) 6.5 x10^3uL (1.8-7.7) Lymphocytes # (Auto) 3.0 x10^3/uL (1.0-4.8) Monocytes # (Auto) 0.8 x10^3/uL (0.0-1.1) Eosinophils # (Auto) 1.5 x10^3/uL (0.0-0.7) H Basophils # (Auto) 0.1 x10^3/uL (0.0-0.2) Sodium Level 140 mmol/L (136-145) Potassium Level 4.0 mmol/L (3.5-5.1) Chloride Level 104 mmol/L (98-107) Carbon Dioxide Level 25 mmol/L (21-32) Anion Gap 11 (6-14) Blood Urea Nitrogen 12 mg/dL (7-20) Creatinine 0.8 mg/dL (0.6-1.0) Estimated GFR (Cockcroft-Gault) 90.5 Glucose Level 88 mg/dL (70-99) Calcium Level 9.5 mg/dL (8.5-10.1) EKG EKG EKG with normal sinus rhythm at 81 normal axis no STEMI interpreted by me[] Radiology/Procedures Radiology/Procedures CT of the head unremarkable[] Course & Med Decision Making Course & Med Decision Making Pertinent Labs and Imaging studies reviewed. (See chart for details) Signs and symptoms consistent with typical episode of seizure-like behavior for this patient who is well known to our emergency medicine service. She stable and well-appearing in the emergency department. Workup unremarkable. Patient feels improved after hydration. Patient agrees with outpatient follow-up with her primary care physician tomorrow and strict return precautions given. Dragon Disclaimer Dragon Disclaimer This electronic medical record was generated, in whole or in part, using a voice recognition dictation system. Departure Departure: Impression: Primary Impression: Seizure-like activity Additional Impressions: Anxiety Marijuana abuse Disposition: HOME, SELF-CARE Condition: IMPROVED Referrals: ALVARO CARRERA DO (PCP) Patient Instructions: Anxiety and Panic Attacks, [id number] Additional Instructions: It is unclear what has caused her episode of seizure-like activity. A full workup in the emergency department was unremarkable this evening. No further workup or treatment is indicated at this time. Rest and drink plenty of fluids. Take your medications including her anxiety medication as previously prescribed and follow-up with your doctor in the morning. Return for new or severe symptoms. Problem Qualifiers STACY NJ MD Jul 30, 2017 00:48
[2017-07-30] MEDS: IV NORMAL SALINE 1,000ML 1,000 ML IV SCH (00:59)
[2017-07-30 01:20] VITALS: BP 95/44
[2017-07-30] MEDS ORDERED: diphenhydrAMINE 50 MG/ML VIAL IVP ONE (01:30)
== END 2017-07-30 01:39 | disposition home or self-care (01) ==
LOC: ER 21:40
DX: R56.9 Unspecified convulsions (principal); F41.9 Anxiety disorder, unspecified; F12.10 Cannabis abuse, uncomplicated; J45.909 Unspecified asthma, uncomplicated; E11.9 Type 2 diabetes mellitus without complications; G89.29 Other chronic pain; F17.200 Nicotine dependence, unspecified, uncomplicated; Z88.2 Allergy status to sulfonamides; Z88.4 Allergy status to anesthetic agent; Z91.040 Latex allergy status
CPT/HCPCS: 36415; 70450; 80048; 80307; 81025; 84443; 85025; 93005; 96361; 96374; 96375; 96376; 99285; J1200; J1885; J2405; G0479; J7030